=== PATIENT | female | born 1960 | race Caucasian/White ===

== ENCOUNTER 2019-04-16 15:33 | Outpatient (CLI) | payer OTHER, SELFPAY ==
--- NOTE | 2019-04-16 15:36 | ECG_ITS ---
Measurements Intervals [place] Rate: 53 P: 69 VA: 158 QRS: 15 QRSD: 102 T: 40 QT: 445 QTc: 419 Interpretive Statements SINUS BRADYCARDIA DELAYED PRECORDIAL R/S TRANSITION BASELINE ARTIFACT- I, II, III, AVR, AVL, AVF, V6 BORDERLINE ECG Electronically Signed On 04-16-2019 16:06:23 TALENT PARTNER by Rigoberto Farias D.O.
== END 2019-04-16 15:34 | disposition home or self-care (01) ==
LOC: ANHSURGERY 15:36
PROVIDERS: PCP Internal Medicine; Visit Provider Surgery
DX: I49.3 Ventricular premature depolarization (principal)
CPT/HCPCS: 93005

== ENCOUNTER 2019-04-23 01:52 | Day surgery (SDC) | payer OTHER, SELFPAY ==
[2019-04-09 12:39] VITALS: BMI 22.8
[2019-04-23 13:26] VITALS: BP 102/67; PULSE 56; RESP 14; TEMP 36.2; O2SAT 98
--- NOTE | 2019-04-23 13:45 | WPDANESEPPF ---
Anes - Initial Pre Proc Eval Procedure: Operation Date: 04/23/19 14:30 Proposed Procedures p Excision Subcutaneous Mass Right Mid Back - Red Hernandez MD Date/Time: 04/23/19 13:45 Surgeon: Red Hernandez MD Pre Op Diagnosis: Mass of Trunk Patient Data Age: 59 Gender: F Height: 5 ft 2 in Weight: 56.8 kg Last Vital Signs Temp 97.1 F L 04/23/19 13:26 Pulse 56 L 04/23/19 13:26 Resp 14 04/23/19 13:26 BP 102/67 04/23/19 13:26 Pulse Ox 98 04/23/19 13:26 Allergies Allergy/AdvReac Type Severity Reaction Status Date / Time adhesive Allergy Mild REDNESS Verified 04/23/19 13:15 penicillin G Allergy Unknown Hives Verified 04/23/19 13:15 Penicillins Allergy Unknown Hives Verified 04/23/19 13:15 Sulfa (Sulfonamide Allergy Unknown Hives Verified 04/23/19 13:15 Antibiotics) midazolam AdvReac Severe VERY HARD Verified 04/23/19 13:15 TO WAKE UP Home Medications Medication Instructions Recorded Confirmed Type estradiol 0.5 mg tablet 0.5 mg PO DAILY 01/25/19 04/23/19 History fyqeefzhgrff-Av-tneg-minerals 1 tablet PO DAILY 01/25/19 04/23/19 History omega-3 fatty acids 1,000 mg 1,000 mg PO DAILY 01/25/19 04/23/19 History capsule Patient hx anesthesia problems: none Family hx anesthesia problems: none PMFSH Past Medical History Medical History (Updated 04/23/19 @ 13:45 by Partha Franks MD) Irregular heart beat Surgical History Surgical History H/O breast biopsy x7 H/O section x2 H/O sinus surgery H/O: hysterectomy x2 Hx of appendectomy Hx of tonsillectomy Social History Social History Smoking status: Never smoker Alcohol intake: current Anes - Eval Final PreProcedure Day of Procedure 04/23/19 13:45 Patient weight: normal Heart: regular rate and rhythm Lungs: clear to auscultation Airway: Mallampati scale class II Neurological: alert and oriented Last oral intake: >/= 8 hours ASA classification: II Emergent: no Anesthetic plan: proceed Anesthesia type and monitoring: general GIVS (avoid Versed; patient does not want, states impair memory for prolonged period of time) and standard monitoring Informed Consent: The patient's anesthetic plan and its attendant risks and benefits were discussed with the patient/family/POA. Questions were solicited and answers provided to the satisfaction of the patient/family/POA.
[2019-04-23] MEDS: LACTATED RINGERS 1,000 ML 30 ML IV CONT (13:59)
--- NOTE | 2019-04-23 14:52 | PM.HPGS ---
History of Present Illness History of Present Illness Consent: Risks, benefits, and alternatives of excision of a subcutaneous mass right upper back have been discussed and questions answered. Patient agrees to proceed with procedure. Chief complaint: Mass of Trunk Narrative: Lizet Vogel is a 59 year old female who presented to the office at the request of CHELY Cabrera for evaluation of a right mid back mass. Patient noticed a mass on her back at least 3 years ago, just under her bra strap. Clothes rub on this upon which she then is experiencing occasional itching and tingling. She has a regular work-our regimen in which the clothing and undergarments she wears also cause discomfort by rubbing on it. She does have hx of excision of a benign lipoma on her left breast in the distant past. Her mother also had multiple lipomas removed. Review of Systems Constitutional: Constitutional: Reports no additional constitutional complaints and Denies frequent falls Eyes: Eyes: Reports as per HPI ENT: Reports Normal hearing present, Denies dizziness and Reports other (Mucous membranes moist.) Cardiovascular: Cardiovascular: Denies chest pain, Denies palpitations, Denies dyspnea and Denies dyspnea on exertion Respiratory: Respiratory: Denies hemoptysis, Denies dyspnea, Denies dyspnea on exertion and Denies wheezing Gastrointestinal: Gastrointestinal: Reports no additional gastrointestinal complaints Genitourinary: Genitourinary: Denies hematuria, Denies urinary frequency and Denies nocturia Musculoskeletal: Musculoskeletal: Denies deformity and Reports other ( no clubbing,cyanosis, or edema) Integumentary/Breasts: Skin/Breast: Denies new lesions, Denies rash and Denies unusual bruising Neurologic: Reports Normal hearing present, Denies dizziness, Denies frequent falls, Denies memory loss and Denies seizure-like activity Psychiatric: Psychiatric: Denies memory loss and Reports other ( normal mood and mental status) Endocrine: Endocrine: Denies cold intolerance and Denies palpitations Hematologic/Lymphatic: Hematologic/Lymphatic: Denies easy bleeding and Denies easy bruising Allergic/Immunologic: Allergic/Immunologic: Denies wheezing and Reports other ( no lymphadenopathy) [facility] Past Medical History Medical History (Updated 04/23/19 @ 14:56 by Red Hernandez MD) Irregular heart beat Surgical History Surgical History H/O breast biopsy x7 H/O section x2 H/O sinus surgery H/O: hysterectomy x2 Hx of appendectomy Hx of tonsillectomy Social History Social History Smoking status: Never smoker Alcohol intake: current Meds Home Medications and Allergies Home Medications Medication Instructions Recorded Confirmed Type estradiol 0.5 mg tablet 0.5 mg PO DAILY 01/25/19 04/23/19 History pfhiunlnyulj-Km-iekd-minerals 1 tablet PO DAILY 01/25/19 04/23/19 History omega-3 fatty acids 1,000 mg 1,000 mg PO DAILY 01/25/19 04/23/19 History capsule Allergies Allergy/AdvReac Type Severity Reaction Status Date / Time adhesive Allergy Mild REDNESS Verified 04/23/19 13:15 penicillin G Allergy Unknown Hives Verified 04/23/19 13:15 Penicillins Allergy Unknown Hives Verified 04/23/19 13:15 Sulfa (Sulfonamide Allergy Unknown Hives Verified 04/23/19 13:15 Antibiotics) midazolam AdvReac Severe VERY HARD Verified 04/23/19 13:15 TO WAKE UP Vital Signs Vital Signs - 24 hr 04/23/19 13:26 Temperature 36.2 C L Pulse Rate 56 L Respiratory Rate 14 Blood Pressure 102/67 Pulse Oximetry 98 Exam Const: General: cooperative, healthy appearing, no acute distress, well developed and alert; No confusion Nutritional Appearance: well nourished Orientation/consciousness: patient oriented x3 and No confusion Limitations: no limitations HENMT: Head: normal to inspection, normocephalic
[2019-04-23] MEDS: LIDO 2%/EPINEPHRINE 1:100,000 20 ML VIAL INFILTRATE (15:32)
[2019-04-23 16:03] VITALS: BP 99/49; PULSE 80; RESP 16; O2SAT 100
[2019-04-23 16:40] VITALS: BP 113/52; PULSE 82; RESP 16; O2SAT 100
--- NOTE | 2019-04-23 16:40 | P.OP_ITS ---
Procedure Note - Detailed Date of procedure: 04/23/19 Pre-op diagnosis: Mass of Trunk 5 x 4 cm subcutaneous mass right upper back ( suspected lipoma ) Post-op diagnosis: same Procedure performed: Excision of 5 x 4 cm subcutaneous mass right upper back Description of procedure: The patient was placed in the left lateral decubitus position. Anesthesia induced general IV sedation. After a surgical time out confirming patient and procedure the patient was prepped and draped in the usual sterile fashion. Local anesthetic was administered subcutaneously. The lesion measured externally 5 x 4.5 cm. An vertical direct incision was made over the palpable the lesion and I dissected directly down through the subcutaneous tissues until we saw what appeared to be the capsule around the suspected lipoma. I dissected down And around the palpable movable spongy mass into the deep subcutaneous tissues and then completely excised the lesion. this section was done mostly with needle- tip Bovie cautery. The deep surface of this mass was densely adhered to the underlying muscular fascia. It nicely and appeared that I had excised the entire capsule of the lipoma. Bleeding was controlled with electrocautery. The wound was closed in two layers. An un-dyed 2-0 vicryl deep dermal and then a 4-0 undyed Moncryl running subcuticular closure was completed. Surgical glue applied as dressing. Patient tolerated this well. Anesthesia: local and other ( G IV S by Dr. Shady Franks) Surgeon: Red Hernandez MD Cut And Print Machine Operator: TED Moy, OR 1st assist Estimated blood loss (mL): 3 Drains: No Packing: No Pathology: yes ( 5 x 3.5 cm mass (suspected lipoma )) Complications: No immediate complications Condition: stable Disposition: same day Findings: a spongy soft mass consistent with lipoma. This was densely adhered to the underlying fascia however.
== END 2019-04-23 16:56 | disposition home or self-care (01) ==
PROVIDERS: PCP Internal Medicine; Visit Provider Surgery
PROC: (CPT 21931; principal; 2019-04-23 14:30)
DX: D17.1 Benign lipomatous neoplasm of skin and subcutaneous tissue of trunk (principal)
CPT/HCPCS: 21931; 88304; J2704; J3010; J7120

== ENCOUNTER 2020-01-02 07:29 | Outpatient (CLI) | payer OTHER, SELFPAY ==
--- NOTE | ~2020-01-02 | MM_ITS ---
EXAMINATION: MM scrn cally implant BI w uriel HISTORY: Screening mammogram TECHNIQUE: Craniocaudal and mediolateral oblique 3-D tomosynthesis images with implant displacement a nd synthetic 2-D images were generated. Craniocaudal and mediolateral oblique views of the breasts wi thout implant displacement were obtained using full field digital mammography. CAD analysis was submi tted and interpreted. COMPARISON: Comparison to multiple prior studies sequentially, with oldest reviewed study dated 08/31. BREAST PARENCHYMAL COMPOSITION: The breasts are heterogeneously dense, which may obscure small masses . FINDINGS: There are bilateral subpectoral saline implants. There are postbiopsy changes in the left b reast. There is no evidence of suspicious mass, calcification, or architectural distortion to suggest malignancy in either breast. There has been no suspicious interval change. IMPRESSION: 1. No mammographic evidence of malignancy. 2. Recommend routine screening mammography in one year. BI-RADS Category 2: Benign finding(s). Reviewed, dictated and finalized at location A.
== END 2020-01-02 07:30 | disposition home or self-care (01) ==
LOC: ANHIMG 07:31
PROVIDERS: PCP Internal Medicine; Visit Provider Nurse Practitioner
DX: Z12.31 Encounter for screening mammogram for malignant neoplasm of breast (principal)
CPT/HCPCS: 77063; 77067

== ENCOUNTER 2021-01-06 17:17 | Outpatient (CLI) | payer OTHER, SELFPAY ==
--- NOTE | ~2021-01-06 | MM_ITS ---
EXAMINATION: MM scrn cally implant BI w uriel HISTORY: Screening mammogram TECHNIQUE: Craniocaudal and mediolateral oblique 3-D tomosynthesis images with implant displacement a nd synthetic 2-D images were generated. Craniocaudal and mediolateral oblique views of the breasts wi thout implant displacement were obtained using full field digital mammography. CAD analysis was submi tted and interpreted. COMPARISON: 01/02/2020, 11/29/2018, 12/03/2017 bilateral digital screening mammogram examinations BREAST PARENCHYMAL COMPOSITION: The breasts are heterogeneously dense, which may obscure small masses . FINDINGS: Status post bilateral augmentation mammoplasty. There are multiple biopsy markers of surgical clips of left breast. History of prior bilateral benign breast biopsies. Scattered bilateral punctate benign-appearing microcalcifications. There is no evidence of suspicious mass, calcification, or architectural distortion to suggest malign steffen in either breast. There has been no suspicious interval change. IMPRESSION: 1. No mammographic evidence of malignancy. 2. Recommend routine screening mammography in one year. BI-RADS Category 2: Benign finding(s). Reviewed, dictated and finalized at location A.
== END 2021-01-06 17:18 | disposition home or self-care (01) ==
LOC: ANHIMG 17:18
PROVIDERS: PCP Internal Medicine; Visit Provider Nurse Practitioner
DX: Z12.31 Encounter for screening mammogram for malignant neoplasm of breast (principal)
CPT/HCPCS: 77063; 77067

== ENCOUNTER → 2021-03-02 03:03 | Outpatient (CLI) | payer OTHER, SELFPAY ==
[2021-03-02 18:29] LABS: SARS-CoV-2 RNA PCR Negative
== END ==
PROVIDERS: PCP Internal Medicine; Visit Provider Obstetrics & Gynecology Gynecology
DX: Z20.822 Contact with and (suspected) exposure to COVID-19 (principal)
CPT/HCPCS: C9803; U0003; U0005

== ENCOUNTER 2021-08-03 07:36 | Outpatient (CLI) | payer OTHER, SELFPAY ==
--- NOTE | ~2021-08-03 | DEXA_ITS ---
Bone Density Report Name: PELON OVERTON Age: 61 Sex: Female Ethnicity: White Date of : 1960 Indication: postmenopausal; screening for osteoporosis; hysterectomy; Referring Provider: AMY, HANK Study: Bone densitometry was performed. Exam Date: August 03, 2021 Accession number: [id number] Bone Density: Region BMD T-score Z-score Classification AP Spine(L1-L4) 1.006 -0.4 1.1 Normal Femoral Neck (Left) 0.701 -1.3 0.0 Osteopenia Total Hip (Left) 0.920 -0.2 0.8 Normal Femoral Neck (Right) 0.714 -1.2 0.1 Osteopenia Total Hip (Right) 0.923 -0.2 0.8 Normal Total Hip Mean 0.921 -0.2 0.8 Normal World Health Organization criteria for BMD impression classify patients as: Normal (T-score at or above -1.0), Osteopenia (T-score between -1.0 and -2.5), or Osteoporosis (T-score at or below -2.5). 10-year Fracture Risk(1): Major Osteoporotic Fracture 7.0% Hip Fracture 0.6% Reported Risk Factors: [place] (), Neck BMD=0.701, BMI=21.2 (1) FRAX(R) Version 3.08. Fracture probability calculated for an untreated patient. Fracture probability may be lower if the patient has received treatment. Previous Exams: Region Exam Age BMD T-score BMD Change BMD Change Date g/cm2 vs Baseline vs Previous AP Spine (L1-L4) 08/03/2021 61 1.006 -0.4 -0.117 (-10.4% 0.012 (1.2%) 09/18/2016 56 0.994 -0.5 -0.129 (-11.5% -0.129 (-11.5% 11/07/2011 51 1.123 0.7 Total Hip(Left) 08/03/2021 61 0.920 -0.2 -0.040 (-4.2%) -0.070 (-7.1%) 09/18/2016 56 0.990 0.4 0.030 (3.1%)# 0.030 (3.1%)# 11/07/2011 51 0.960 0.1 Total Hip(Right) 08/03/2021 61 0.923 -0.2 -0.039 (-4.0%) -0.091 (-9.0%) 09/18/2016 56 1.014 0.6 0.052 (5.5%)# 0.052 (5.5%)# 11/07/2011 51 0.962 0.2 *Denotes significance at 95% confidence level, LSC for AP Spine = 0.022 g/cm2, LSC for Total Hip = 0.027 g/cm2 # Denotes dissimilar scan types or analysis methods Clinical Information Provided by Patient: Has the following medical conditions: Hysterectomy Patient maximum height was 63 Menopause Age: 37 Drinks caffeinated beverages Onset of menses at age 12 Number of children 2 Impression: The patient has low bone mass, based on the Left Femoral Neck T-score. The patient has an estimated ten-year risk of hip fracture of 0.6% and an estimated ten-year risk of major fracture of 7%, based on the WHO FRAX algorithm. The BMD
== END 2021-08-03 07:37 | disposition home or self-care (01) ==
PROVIDERS: PCP Internal Medicine; Visit Provider Nurse Practitioner
DX: Z78.0 Asymptomatic menopausal state (principal); M85.851 Other specified disorders of bone density and structure, right thigh; M85.852 Other specified disorders of bone density and structure, left thigh
CPT/HCPCS: 77080

== ENCOUNTER 2021-11-04 12:03 | Outpatient (CLI) | payer OTHER, SELFPAY ==
--- NOTE | ~2021-11-04 | MMUS_ITS ---
EXAMINATION: MM diag cally implant BI w uriel, US breast LT complete HISTORY: Left breast lump TECHNIQUE: Implant displaced ML, MLO and CC 3-D tomosynthesis images of both breasts were performed a nd synthetic 2-D images were generated. Bilateral implant ML, MLO and CC views. CAD analysis was subm itted and interpreted. High resolution complete left breast ultrasound including all 4 quadrants and subareolar area was performed. COMPARISON: 01/06/2021 bilateral implant screening mammogram 01/02/2020, 11/29/2018 bilateral implant screening mammogram examinations BREAST PARENCHYMAL COMPOSITION: The breasts are heterogeneously dense, which may obscure small masses . FINDINGS: MAMMOGRAPHIC FINDINGS: Status post bilateral augmentation mammoplasty. Status post left partial mastectomy. There are 2 biopsy markers on the left. Scattered bilateral benign appearing calcifications. No interval suspicious mass or architectural di stortion or significant new or developing density of either breast is detected compared to prior exam inations dating back to 11/29/2018. ULTRASOUND: Left breast implant is noted. No suspicious mass or shadowing is noted at 12:00 the area of clinical concern of lump. 4:00 near nipple: 3.9 x 3.1 x 4.3 mm cyst with through transmission and posterior enhancement 6:00 2 cm from nipple: 4.8 x 3.7 x 4.6 mm circumscribed hypoechoic lesion without internal vascularit y or posterior shadowing. IMPRESSION: 1. Probable benign findings 2. 6 month diagnostic mammogram and left breast ultrasound follow-up are recommended BI-RADS category 3, probably benign findings. Reviewed, dictated and finalized at location A. IMPRESSION: 1. Probable benign findings 2. 6 month diagnostic mammogram and left breast ultrasound follow-up are recomm ended BI-RADS category 3, probably benign findings.
== END 2021-11-04 12:04 | disposition home or self-care (01) ==
PROVIDERS: PCP Internal Medicine; Visit Provider Nurse Practitioner
DX: N63.20 Unspecified lump in the left breast, unspecified quadrant (principal); R92.8 Other abnormal and inconclusive findings on diagnostic imaging of breast
CPT/HCPCS: 76641; 77062; 77066; G0279

== ENCOUNTER 2022-04-24 08:57 | Outpatient (CLI) | payer OTHER, SELFPAY ==
--- NOTE | 2022-04-24 | ECG_ITS ---
Measurements Intervals [place] Rate: 60 P: 75 AL: 169 QRS: 23 QRSD: 96 T: 50 QT: 430 QTc: 430 Interpretive Statements SINUS RHYTHM BORDERLINE ECG LOW-VOLTAGE QRS IN LIMB LEADS COMPARED TO ECG 04/16/2019 16:02:17 HEART RATE HAS INCREASED Electronically Signed On 04-24-2022 16:19:39 DROP WIRE HANGER by Gold Galloway M.D.
--- NOTE | ~2022-04-24 | XR_ITS ---
EXAMINATION: XR lg joint inject/asp w image DATE: 04/24/2022 10:05 INDICATION: Right hip pain. TECHNIQUE: A time-out was performed to verify the patient's name, date of , and procedure to b e performed. The procedure including the risks, benefits, and alternatives was discussed with the pat ient. Risks discussed included bleeding and infection. The patient understood the risks and agreed to proceed. The skin overlying the right hip joint was prepped and draped in usual sterile fashion. A nesthetic was administered with 1% lidocaine subcutaneously. A 22 G needle was advanced under fluoro scopic guidance into the joint. Subsequently, injectate consisting of 4 mL 1% lidocaine and 1 mL 80 mg/mL Depo-Medrol was instilled. The needle was removed and the entry site was cleaned and dressed. There were no immediate complications. Fluoroscopy exposure time was 0.1 minutes. The total number o f images was 1. FINDINGS: Real-time fluoroscopy demonstrates the needle in the right hip joint. Patient's pain prior to procedure:2/10. Patient's pain following the procedure: 0/10. IMPRESSION: 1. Fluoroscopy guided right hip joint injection of local anesthetic and steroid with decrease in the patient's presenting pain. Reviewed, dictated and finalized at location A. GER OF PHOTOGRAPHY
--- NOTE | ~2022-04-24 | XR_ITS ---
Clinical Indication: Preoperative evaluation, chest pain PA and lateral views of the chest: Comparison: None Findings: The lungs are clear, without evidence of focal consolidation or pleural effusion. Cardiome diastinal silhouette is within normal limits. Bones and soft tissues are unremarkable. Impression: Normal chest. Reviewed, dictated and finalized at [facility]. F PROCUREMENT OFFICER Impression: Normal chest.
[2022-04-24 11:15] LABS: Basophils Percent Auto 0.5 % (0.2-1.2); Eosinophils Absolute Auto 0.1 K/mm3 (0-0.3); Eosinophils Percent Auto 1.8 % (0-4.4); Hemoglobin 13.6 g/dL (12.0-15.0); Immature Granulocyte Absolute 0.01 K/mm3 (0.00-0.031); Immature Granulocyte Percent A 0.3 % (0-0.5); Lymphocytes Absolute Auto 1.12 K/mm3 (0.9-3.2); Lymphocytes Percent Auto 28.5 % (18.3-44.2); Mean Corpuscular HGB Conc 33.2 g/dl (32-36); Mean Corpuscular Hemoglobin 30.6 pg (26-34); Mean Corpuscular Volume 92.3 fl (80-100); Mean Platelet Volume 9.2 fl (7.4-10.4); Monocytes Absolute Auto 0.4 K/mm3 (0.1-0.6); Monocytes Percent Auto 10.4 % (2.6-8.5); Neutrophils Absolute Auto 2.3 K/mm3 (1.3-6.7); Neutrophils Percent Auto 58.5 % (45.5-73.1); Platelet Count Result 204 k/mm3 (150-375); Red Blood Count 4.44 M/mm3 (4.2-5.4); Red Cell Distribution Width 12.2 % (11.5-14.5); White Blood Count 3.9 K/mm3 (4.5-10.0)
[2022-04-24 11:24] LABS: Alanine Aminotransferase 27 U/L (6-35); Albumin Level 4.3 g/dL (3.5-5.1); Alkaline Phosphatase 57 U/L (38-126); Anion Gap 3 mmol/L (8-16); Aspartate Amino Transferase 35 U/L (14-36); Bilirubin,Total 0.7 mg/dL (0.2-1.3); Blood Urea Nitrogen 14 mg/dL (7-17); Calcium 9.3 mg/dL (8.4-10.2); Carbon Dioxide 31 mmol/L (22-30); Chloride 101 mmol/L (98-107); Estimated Glomerular Filt Rate > 60; Glucose 76 mg/dL (65-110); Potassium 3.6 mmol/L (3.4-5.0); Sodium 135 mmol/L (137-145)
[2022-04-24 11:40] LABS: Partial Thromboplastin Time 28.8 SECONDS (22.3-36.8); Prothrombin Time 12.9 Seconds (11.1-14.7)
== END 2022-04-24 08:58 | disposition home or self-care (01) ==
PROVIDERS: PCP Internal Medicine; Visit Provider Orthopaedic Surgery
DX: Z01.818 Encounter for other preprocedural examination (principal); M25.551 Pain in right hip
CPT/HCPCS: 20610; 36415; 71046; 77002; 80053; 85025; 85610; 85730; 93005; J1040

== ENCOUNTER 2022-07-12 11:50 | Outpatient (CLI) | payer OTHER, SELFPAY ==
--- NOTE | ~2022-07-12 | MMUS_ITS ---
EXAMINATION: MM diag cally implant LT w uriel, US breast LT complete HISTORY: Six-month follow-up of probable benign mammographic and ultrasound findings TECHNIQUE: Implant displaced ML, MLO and CC 3-D tomosynthesis images of the breast were performed and synthetic 2-D images were generated. Implant ML, MLO and CC views. CAD analysis was submitted and in terpreted. Complete ultrasound examination of left breast including all 4 quadrants and subareolar areas. COMPARISON: 2diagnostic bilateral implant incomplete left breast ultrasound examination BREAST PARENCHYMAL COMPOSITION: The breasts are heterogeneously dense, which may obscure small masses . LEFT MAMMOGRAM FINDINGS: 2 biopsy markers and multiple surgical clips are again noted on the left. No interval suspicious mass, architectural distortion, malignant calcification, skin thickening or retr action or significant new or developing density is detected. LEFT ULTRASOUND FINDINGS: No suspicious mass or shadowing of the left breast is detected. Heterogeneously dense stroma is noted. Scattered cysts and complicated cystic lesions are noted, incl uding but not limited to approximately 3.4 x 6 mm cyst at 4:00 near nipple, benign appearing circumsc ribed complex lesion with through transmission posterior enhancement at 6:00 2 cm from the nipple, me asuring approximately 5.6 x 8 mm. IMPRESSION: 1. Benign findings 2. Routine annual mammographic screening is recommended BI-RADS Category 2: Benign finding(s). And ultrasound Reviewed, dictated and finalized at location A. IMPRESSION: 1. Benign findings 2. Routine annual mammographic screening is recommended BI-RADS Category 2: Benign finding(s). And ultrasound
== END 2022-07-12 11:51 | disposition home or self-care (01) ==
LOC: ANHIMG 11:51
PROVIDERS: PCP Internal Medicine; Visit Provider Obstetrics & Gynecology Gynecology
DX: N60.02 Solitary cyst of left breast (principal)
CPT/HCPCS: 76641; 77061; 77065; G0279

== ENCOUNTER 2023-07-18 08:03 | Outpatient (CLI) | payer OTHER, SELFPAY ==
--- NOTE | ~2023-07-18 | MM_ITS ---
EXAMINATION: MM scrn cally implant BI w uriel HISTORY: Screening mammogram TECHNIQUE: Craniocaudal and mediolateral oblique 3-D tomosynthesis images with implant displacement a nd synthetic 2-D images were generated. Craniocaudal and mediolateral oblique views of the breasts wi thout implant displacement were obtained using full field digital mammography. CAD analysis was submi tted and interpreted. COMPARISON: Comparison to multiple prior studies sequentially, with oldest reviewed study dated 11/29. BREAST PARENCHYMAL COMPOSITION: Dense: The breasts are heterogeneously dense, which may obscure small masses FINDINGS: There are bilateral subpectoral saline implants. There is no evidence of suspicious mass, c alcification, or architectural distortion to suggest malignancy in either breast. There has been no s uspicious interval change. IMPRESSION: 1. No mammographic evidence of malignancy. 2. Recommend routine screening mammography in one year. BI-RADS Category 1: Negative Reviewed, dictated and finalized at location B.
== END 2023-07-18 08:04 | disposition home or self-care (01) ==
LOC: ANHIMG 08:05
PROVIDERS: PCP Internal Medicine; Visit Provider Advanced Practice Midwife
DX: Z12.31 Encounter for screening mammogram for malignant neoplasm of breast (principal)
CPT/HCPCS: 77063; 77067

== ENCOUNTER 2024-08-21 07:36 | Outpatient (CLI) | payer OTHER, SELFPAY ==
--- NOTE | ~2024-08-21 | MM_ITS ---
Examination: MM scrn KULDIP implant BI W uriel INDICATION: Asymptomatic, referred for screening mammogram COMPARISON: 07/18/2023 through 11/29/2018 TECHNIQUE: Digital Breast Tomosynthesis CC, MLO, and implant displaced CC and MLO views of Both breas ts were obtained with computer-aided detection to assist in interpretation of the study. FINDINGS: The breasts are heterogeneously dense, which may obscure small masses. Bilateral breast retropectoral saline implants in place appears intact. No focal dominant mass, architectural distortion, or suspicious microcalcifications are identified. B iopsy clip in the left breast. There are no features to suggest malignancy. IMPRESSION: 1. No evidence of malignancy in the breasts. 2. Both breasts retropectoral saline implants appears intact. Recommend continued screening mammography BI-RADS 2, BENIGN Reviewed, dictated and finalized at location B.
--- OUTSIDE RECORDS SUMMARY | 2024-08-21 07:40 | XMS_ITS | Referral Summary ---
Author Organization [facility] Address [address] [place] [address] Phone Care Team Providers Care Car Starter Name Role Phone Lukas King MD Primary Care Provider [phone] Allergies Active Allergy Reactions Criticality Noted Date Comments Penicillins [place] Hives,Itching,Vomiting Medium 05/17/2017 Sulfa (Sulfonamide Antibiotics) Medications multivitamin tablet tablet take 1 tablet by oral route every day with food 0 0 11/08/2015 Active estradioL (ESTRACE) 0.5 mg tablet Take 1 tablet (0.5 mg total) by mouth daily 10/22/2022 Active Active Problems Problem Noted Date Diagnosed Date Fibrocystic change of breast, left 11/30/2017 Intraductal papilloma of left breast 11/30/2017 Radial scar of breast 11/30/2017 Abnormal ultrasound of breast 11/14/2017 Insomnia 11/08/2015 Overview (06/22/2016): Insomnia, unspecified type Pounding heartbeat 11/08/2015 Overview (06/22/2016): Pounding heartbeat Ventricular premature beats 11/08/2015 Overview (06/22/2016): PVC's (premature ventricular contractions) Immunizations Immunization Administration Dates Next Due Influenza, Quadrivalent, Ambar l Culture-based MDCK, Preservative Free, Antibiotic Free, Intramuscular 01/25/2022,12/21/2019 Influenza, Quadrivalent, Split, Intramuscular Influenza, Trivalent, IM (MDV) 12/31/2016 Influenza, Trivalent, Preservative Free, Intramu scular 01/14/2016,12/31/2014 Tdap 01/04/2017 Social History Tobacco Use Types Packs/Day Years Used Date Smoking Tobacco: Never Tobacco Cessation:Counseling Given: Not Answered Alcohol Use Standard Drinks/Week Comments Yes 0 (1 standard drink = 0.6 oz pur e alcohol) Comments Unknown Sex and Gender Information Value Date Recorded Sex Assigned at Not on file Legal Sex Female Gender Identity Not on file Sexual Orientation Not on file Last Filed Vital Signs Vital Sign Reading Time Taken Comments Blood Pressure 100/60 11/08/2015 8:07 AM CDT Pulse 60 11/08/2015 8:07 AM CDT Temperature - - Respiratory Rate - - Oxygen Saturation - - Inhaled Oxygen Concentration - - Weight 54.4 kg (120 lb) 01/29/2023 7:10 AM 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
--- OUTSIDE RECORDS SUMMARY | 2024-08-21 07:40 | XMS_ITS | Clinical Summary ---
Author Organization [facility] Address [address] [place] [address] Care Team Providers Care Manager Endoscopy Name Role Phone Blu Colby DO Primary Care Provider [phone] Allergies Active Allergy Reactions Criticality Noted Date Comments Penicillins Hives High 11/14/2017 Sulfa (Sulfonamide Antibiotics) Hives High 10/18 Medications estradiol 0.025 mg/24 hr patch Apply 1 Patch to skin as directed twice weekly. 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/30/2017 Intraductal papilloma of left breast 11/30/2017 Fibrocystic change of breast, left 11/30/2017 Abnormal ultrasound of breast 11/14/2017 Hormone replacement therapy 11/14/2017 Family History Medical History Relation Name Comments Cancer Father bladder, a t 79 Cancer Maternal Aunt bladder and ric ng, at 80 Cancer Maternal Grandfather bladder and lung, at 80 Breast Cancer Maternal Grandmother a t 80 Relation Name Status Comments Father Maternal Aunt Maternal Grandfather Maternal Grandmother Social History Tobacco Use Types Packs/Day Years Used Date Smoking Tobacco: Never Smokeless Tobacco: Never Alcohol Use Standard Drinks/Week Comments Yes 1 (1 standard drink = 0.6 oz pur e alcohol) Comments No Sex and Gender Information Value Date Recorded Sex Assigned at Not on file Legal Sex Female 9:27 AM CDT Gender Identity Not on file Sexual Orientation Not on file Last Filed Vital Signs Vital Sign Reading Time Taken Comments Blood Pressure 124/78 01/02/2018 8:50 AM CDT Pulse 85 01/02/2018 8:50 AM CDT Temperature 36.4 C (97.6 F) 01/02/2018 8:50 AM CDT Respiratory Rate - - Oxygen Saturation 96% 01/02/2018 8:50 AM CDT Inhaled Oxygen Concentration - - Weight 56.4 kg (124 lb 6.4 oz) 01/02/2018 8:50 A M CDT Height 157.5 cm (5' 2) 01/02/2018 8:50 AM CDT Body Mass Index 22.75 01/02/2018 8:50 AM CDT Plan of Treatment Health Maintenance Due Date Last Done Comments HPV/Cotest (21-29) 1982 CERVICAL CANCER SCREENING 1991 HPV/Cotest (30-65) 1991 PAP SMEAR 1991 BREAST CANCER SCREENING 2001 COLORECTAL SCREENING 2006 Colorectal Cancer Screening 2006 FIT-DNA Q 3 years 2006 FIT/FOBT Q 1 year 2006 Flex Sig/CT Colonography Q 5 years 2006 ZOSTER VACCINE (1 of 2) 2011 INFLUENZA VACCINE (#1) 2023 DTAP/TDAP/TD VACCINES (2 - Td or Tdap) 01/04/2027 RSV VACCINE (60+ or ) (1 - 1-dose 75+ series) 02/21/2036 Care Teams Manager Endoscopy Relationship Specialty Start Date End Date Blu Colby DO [address] [facility] [address] [place] [id number] PCP - General Internal Medicine 11/14/17
--- OUTSIDE RECORDS SUMMARY | 2024-08-21 07:40 | XMS_ITS | Clinical Summary ---
Author Organization [facility] Address [address] [place] [address] Phone Care Team Providers Care Lathe Operator Name Role Phone Lukas King MD Primary Care Provider [phone] Allergies Active Allergy Reactions Criticality Noted Date [...] Preservative Free, Intramu scular 01/14/2016,12/31/2014 Tdap 01/04/2017 Surgical History Surgery Date Site/Laterality Comments OTHER SURGICAL HISTORY Breast Biopsy x2 HYSTERECTOMY Hysterectomy OTHER SURGICAL HISTORY Removal of ovaries & tubes SINUS SURGERY Sinus Surgery Medical History Medical History Date Comments Hx Other Medical Bronchitis shelby ral times. Hx Other Medical Arrhythmias PVC 's symptomatic Family History Medical History Relation Name Comments Bladder Cancer Father 2 Bladder Cance r; Other Mother 2 hypercholestero l; Relation Name Status Comments Father 1 Alive Father 2 Mother 1 Alive Mother 2 Social History Tobacco Use Types Packs/Day Years Used Date Smoking Tobacco: Never Tobacco Cessation:Counseling Given: Not Answered Alcohol Use Standard Drinks/Week Comments Yes 0 (1 standard drink = 0.6 oz pur e alcohol) Comments Unknown Sex and Gender Information Value Date Recorded Sex Assigned at Not on file Legal Sex Female Gender Identity Not on file Sexual Orientation Not on file Obstetrics History Last Filed Vital Signs Vital Sign Reading Time Taken Comments Blood Pressure 100/60 11/08/2015 8:07 AM CDT Pulse 60 11/08/2015 8:07 AM CDT Temperature - - Respiratory Rate - - Oxygen Saturation - - Inhaled Oxygen Concentration - - Weight 54.4 kg (120 lb) 01/29/2023 7:10 AM SYSTEMS ENGINEERING MANAGER Height 160 cm (5' 3) 01/29/2023 7:10 AM SYSTEMS ENGINEERING MANAGER Body Mass Index 21.26 01/29/2023 7:10 AM SYSTEMS ENGINEERING MANAGER Plan of Treatment Health Maintenance Due Date Last Done Comments Breast Cancer Screening-Mammogram 1961 Colon Cancer Screening-Colonoscopy 1961 Depression Screening 1961 Hepatitis C Screening 1961 Hepatitis B Screening 1979 Regular Well Visit/Exam 18-64 1979 Zoster Vaccine (1 of 2) 2011 Covid-19 Vaccine (3 - season) 2023 07/09/2020, 06/18/2020 Influenza Vaccine (Season Ended) 2024 01/25/2022, 12/21/2019, 02/08/2019, Additional history exists DTaP/Tdap/Td Vaccine (2 - Td or Tdap) 01/04/2027 01/04/2017 Pneumococcal vaccine <65 Aged Out No longer eligible based on patient's age to complete this topic Insurance [facility] Address: [address] [place] [address] [facility] Address: [address] [address] [place] [phone] Care Teams Lathe Operator Relationship Specialty Start Date End Date Lukas King MD PCP - General Family Medicine 01/02/19
--- OUTSIDE RECORDS SUMMARY | 2024-08-21 07:40 | XMS_ITS | Clinical Summary ---
Author Organization [facility] Address [address] [place] [address] Care Team Providers Care Heel Builder Name Role Phone Blu Colby DO Primary Care Provider Source Comments [facility],non-owned Affiliates and Associated Physician Practices is amultiple site organization consisting of ambulatory clinics and hospital sitesin [place], [place], [place] and [place]. This disclosure is being madepursuant to the Care Everywhere program and may not contain all information available regarding this patient. 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 Gender Identity Not on file Sexual Orientation Not on file Plan of Treatment Health Maintenance Due Date Last Done Comments COLOGUARD (AGES 45-75) - COL ON CA SCREENING 1961 COLON MONITORING 1961 COLONOSCOPY - COLON CA SCREENING 1961 CT COLONOGRAPHY - COLON CA SCREENING 1961 Colorectal Cancer Screening 1961 FIT - COLON CA SCREENING 1961 FLEX SIG - COLON CA SCREENING 1961 LIPID TESTING 1961 MAMMOGRAM 1961 HIV SCREENING 02/21/1976 HEPATITIS C SCREENING 02/16/1979 PNEUMOCOCCAL VACCINE 50+ (1 of 1 - PCV) 2011 ZOSTER VACCINE (1 of 2) 2011 COVID-19 VACCINE (1 - 2023-2 5 season) 2023 DEPRESSION SCREENING 03/19/2024 INFLUENZA VACCINE (Season Ended) 2024 DTAP/TDAP/TD VACCINES (2 - T d or Tdap) 01/04/2027 01/04/2017 Respiratory Syncytial Virus (RSV) Vaccine Pt: or over 60 yrs (1 - 1-dose 75+ series) 02/21/2036 HEPATITIS B VACCINE Aged Out No longe r eligible based on patient's age to complete this topic HIB VACCINE Aged Out No longer eligi ble based on patient's age to complete this topic HPV VACCINE Aged Out No longer eligi ble based on patient's age to complete this topic MENINGOCOCCAL (Group B) VACC INE SHARED DECISION-MAKING Aged Out No longer eligibl e based on patient's age to complete this topic MENINGOCOCCAL GROUPS A/C/Y/W VACCINE Aged Out No longer eligible b ased on patient's age to complete this topic Insurance [id number] [place] [address] Care Teams Heel Builder Relationship Specialty Start Date End Date Blu Colby DO [address] [facility] [address] [place] [address] PCP - General Internal Medicine 01/04/17
--- OUTSIDE RECORDS SUMMARY | 2024-08-21 07:41 | XMS_ITS | Patient Health Record ---
Author Organization [facility] Address [address] [place] [address] Care Team Providers Care Supervisor Concrete Block Plant Name Role Phone Blu Colby Primary Care Provider Unavailab Bridger Bhardwaj Unavailable [phone] Cameron Lord Unavailable Unavailable ALLERGIES Allergen (clinical drug ingredient) Drug/Non Drug Allergy documented on EMR Reaction Allergy Type Onset Date Status Substance with sulfonamide structure and antibacterial mechanism of action (substance) Sulfa Antibiotics hives Drug Allergy Active Penicillin hives Drug Allergy Active REASON FOR REFERRAL No Information MEDICATIONS Medication SIG (Take, Route, Frequency, Duration) Notes Start Date End Date Status Tylenol Not-Taking Estradiol Active Aleve as needed Not-Taking traMADol HCl 50 MG 1 tablet as needed Orally every 4-6 hours for 7 days 03/02/2022 Not-Taking oxyCODONE-Acetaminophe n 7.5-325 MG 1 tablet as needed Orally every 4-6 hrs for 7 days 05/15/2022 Not-Taking PROBLEMS Problem Type ICD Code Onset Dates Problem Status W/U Status Risk SNOMED Code Notes Problem Degenerative spondylolisthesis (M43.10) Active confirmed Degenerative spondylolisthesis (2718759) Problem DDD (degenerative disc disease), lumbar (M51.36) Active confirmed Degenerative disc disease (69212276) Problem 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 confirmed Lumbosacral spondylosis without myelopathy (35658736) Problem Spondylolisthesis of lumbar region (M43.16) Active confirmed Acquired spondylolisthesis (143968242) Problem Orthopedic aftercare (Z47.89) Active confirmed Encounters Encounter Location Date Provider Diagnosis [facility] [address] [place] [address] 11/14/2023 Bridger Linder PLAN OF TREATMENT Pending Test Test Name Order Date CBC With Differential/Platelet PT AND PTT 03/02/2022 Chem-Comprehensive 03/02/2022 Insurance Providers Payer Name Payer Address Payer Phone Subscriber Number Group Number Insured Name Patient Relationship to Insured Coverage Start Date Coverage End Date [facility] [address] [address] [place] [address] [id number] Lizet Vogel Self - patient is the insured MEDICAL (GENERAL) HISTORY Medical History History ICD Code Anemia Osteopenia Head injury Neck pain Hip pain Constipation Depression Denies being hospitalized for psychiatri c condition Denies h/o drug/chemical dependency Surgical History Surgery Date(Month/Year) Appendectomy X 2 Sinus Breast biopsy X 7 bilateral Breast implants Hysterectomy X 2 LDL L4-5, TLIF L4-5 2022
--- OUTSIDE RECORDS SUMMARY | 2024-08-21 07:41 | XMS_ITS | Data Portability ---
Author Organization [employer], [facility] Address [address] [place] [phone] Assessment No assessment recorded. Plan of Treatment Reminders Order Date Submit Date Provider Last Modified By Organization Details Last Modified Time Details Appointments None recorded. Lab None recorded. Referral None recorded. Procedures None recorded. Surgeries None recorded. Imaging XR, hip, bilateral - rm 6 2024 025 [email or web address] Not available 09:41:20 Medication Orders None recorded. Patient TargetsNo targets recorded. Patient InstructionsNo instructions recorded. Reason for Referral None Reported. Results Created Date Observation Date Name Description Value Unit Range Abnormal Flag Note LastModifiedBy Organization Detail LastModifiedTime 04/04/1901/29/2023 MRI, hip, w/ contr ast No observ ation record ed. [email or web address] Not Available 16:06:14 Result Notes None recorded. Problems No Known Problems Procedures Surgical History Date Name Laterality Status Provider Name and Address Organization Details Recorded Time Radiographs completed Daniel Lucia [address], [place], [address], [employer] 04/06/2024 22:48:53 Imaging Results None recorded. Procedure Notes None recorded. Medical Equipment None Reported. Allergies No known drug allergies Medications Name Sig Start Date Stop Date Status Note LastModified by Organization Details LastModified Time nitrofurantoin macrocrystal 50 mg capsule TAKE 1 CAPSULE BY MOUTH POST-COI DALLY. active Not Available Not Available No t Available estradiol 0.5 mg tablet TAKE 1 TABLET BY MOUTH DAILY active Not Available Not Available No t Available Vitals Date Recorded Heart rate Body height Body mass index (BMI) Body weight Systolic blood pressure Diastolic blood pressure Provider Name and Address Organization Details Last Updated DateTime 5 66 /min 157.48 cm 21.9 kg/m2 47092.0 8 g 125 mm[Hg] 77 mm[Hg] Radha Frankner [facility], [facility] 11:37:59 Social History Question Answer Notes LastModified by Organizat ion Details LastModified Time Tobacco Smoking Status Never Smoker Radha [facility]cy [facility] 04/03/2024 11:57:48 What Is Your Relationship Status? Information not available 04/03/2024 Sex: Unknown Functional Status Question Answer Note LastModified by Organization D etails LastModified Time What is your level of alcohol consumption? Moderate Information not available 04/03/2024 Are you currently employed? 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 Moderate Information not available 04/03/2024 Mental Status None recorded. Family History Relationship Description Onset Age of this Age Resolved Age Notes LastModified by Organization Details LastModified Time Father No current problems or disability Not available 04/03 11:57:37 Mother No current problems or disability Not available 04/03 11:57:37 Medical History Condition Response HIV or AIDS N Coronary Artery Disease N Other Cancer N Gout N Kidney Stones N Hyperthyroidism N Breast Cancer Y Head Trauma/Injury N Hernia N Lung Cancer N Blood Clots N COPD N Depression N Lung Disease N Hypothyroidism N Pneumonia N Pacemaker N Parkinson's N Anxiety Disorder N Multiple Sprains N Arthritis N Alcohol / Substance Abuse N Kidney Cancer N Cancer N Melanoma N Stroke N Gabriel Danlos Syndrome (EDS) N Bowel Dysfunction N Leg or Foot Ulcers N Neck Injury N High Cholesterol N Skin Cancer N Liver Disease N Rheumatoid Arthritis N Fibromyalgia N Headaches N Gastric Issues N Concussion Y Kidney Disease N Heart Problems N Scoliosis N Chronic use of Pain Medication N Prostate Cancer N Migraines N Thyroid Problems N Alzheimers N DVT N Autoimmune Disorder N Anemia N Multiple Sclerosis N Tendon Tear N Ulcers N Heart Attack (LA) N Osteopenia N Diabetes N Bleeding Disorder N Seizures/Epilepsy N Cardiac Stent N Tuberculosis N A-FIB N BPH N Lymphoma N Urinary Tract Infection N Back Problems N Diverticulitis N Dementia N Asthma N Vision Problems N Lupus N Manager Express Medication Use N Peripheral Vascular Disease N Sleep Apnea N Sleep Disorder N GERD/Reflux N Hepatitis N Aneurysm N Thyroid Cancer N Heart Disease N Bronchitis N Pulmonary Embolism N Hypertension N Osteoporosis N Gynecological HistoryNo gynecological history recorded. Obstetrics History GPAL:G 0 P 0 0 0 0 Past Encounters Encounter ID Performer Location Encounter Start Date Encounter Closed Date Diagnosis/Indication Diagnosis SNOMED-CT Code Diagnosis ICD10 Code Diagnosis Note [id number] Daniel Lucia [facility] [address] [facility] [id number] 04/03/2024 11:19:54 04/03/2024 17:18:35 Pain of bilateral hip joints [id number] 2074238 M25.551 M25.552 We had a lengthy discussion regarding the findings of her x-rays and her underlying hip dysplasia. Certainly she does have degenerati ve type labral tears bilaterall y according to her MRI, but I believe it is her underlying dysplasia that offers a more substantia l issue. My recommenda tion at this time would be bilateral total hip arthroplas ty. We did discuss the role of Biologics and the difficult prognosis associated with her condition. She understand s and agrees to the plan she is going to follow-up with orthopedic surgery we will see her back with any further questions Health Concerns Section Related Observation LastModified by Organization Detai ls LastModified Time None Recorded Concern Status LastModified by Organization Details LastModified Time None Recorded Advance Directives Directive None Recorded Payers Encounter Date Sequence Insurance Name Policy Number Policy Paul Covered Member ID Paul Member ID Guarantor Name 04/03/2024 1 [facility] [id number] Lizet Vogel [id number] Lizet Vogel 04/03/2024 1 *SELF PAY* Hema Vogel Notes Date Note Type Note Provider Name and Address Organization Details Recorded Time 04/03/2024 text/html Patient is a 64-year-old female presents today chief complaint bilateral hip pain right greater than left she describes pain ongoing for the past 3-1/2 years in the right side 2-1/2 years on the left side. She states that her symptoms seem to begin after her dog pulled her and caused her a twisting accident. She was evaluated by an orthopedic surgeon who deferred her treatment in the hips until she had her back operated on. At the time she was having no back pain, but imaging of the hips did incidentally show a spondylolisthesis at L4 on L5. She underwent lumbar fusion to address her L4-5 spondylolisthesis, which provided no relief of her hip symptoms. Currently she describes a dull constant ache in the groin that radiates into the buttock she does have some pain that radiates into the thigh but no numbness and tingling into the lower extremities on most days. She does have occasional numbness and tingling in L4-5 distribution as well as some numbness and tingling into the feet in an L5-S1 distribution. Currently she rates her pain as a 5-8 out of 10 depending on her activities. Daniel Lucia [address], [place], [address], [facility], [facility] 04/06/2024 22:50:04 OBGyn Episode No OBEpisode recorded.
--- OUTSIDE RECORDS SUMMARY | 2024-08-21 07:41 | XMS_ITS ---
Author Organization [facility] Address [address] [facility] [address] [place] [address] Care Team Providers Care Gang Mower Operator Name Role Phone Blu Colby Primary Care Provider Unavailab Bridger Bhardwaj Unavailable [phone] Cameron Lord Unavailable Unavailable REASON FOR VISIT Lumbar Encounters Encounter Location Date Provider Diagnosis [facility] [address] [facility] [address] [place] [address] 11/14/2023 Bridger Linder PLAN OF TREATMENT No Information
--- OUTSIDE RECORDS SUMMARY | 2024-08-21 07:41 | XMS_ITS | Continuity of Care Document ---
Author Organization [facility] Address [address] [place] [address] Phone Care Team Providers Care Black Studies Professor Name Role Phone Mk Brown MD Unavailable Unavailable Procedures Procedure Date INJ SPINE LUM/SAC W/ IMAGING GUIDANCE Au SURGICAL TRAY LOW OSMOLAR CONTRAST (200 TO 299 MG IODI NE) Injection, Triamcinolone Acetonide, 10mg LUMBAR SPINE CT W/O CONTRAST Advance Directives Directive Yes / No Effective Date File Name No Information Encounters Encounter Description Practice Location Reason(s) For Visit Diagnoses Date Provider Providers Copied on Encounter [facility], [address], [place], [place], [id number], [place] tel:[phone] [facility] No Information Kevin Terrazas. [address] [place], [place], [address], [place]. tel:[phone] Referring Provider: Bridger Linder DO, [address], [place], [address]. tel:[phone] Family History Family Member Type Diagnosis Age At Onset No Information Payers Payer name Insurance type Covered constitution party ID Authoriza tion(s) [facility] CI [id number] Social History Type Description Quantity Date Captured Comments Sex Female Smoking Status No Information Chief Complaint And Reason For Visit No Information Reason For Referral Reason For Referral No Information History Of Present Illness Encounter Date Complaint History Of Prese nt Illness No Information Functional Status Date Functional Assessmen t No Information Instructions Date Instruction Additional Infor mation No Information Assessments Type Assessment Date No Information Patient Care Teams Name Effective Dates (start - stop) Status Members No Information
== END 2024-08-21 07:37 | disposition home or self-care (01) ==
LOC: ANHIMG 07:39
PROVIDERS: PCP Internal Medicine; Visit Provider Nurse Practitioner
DX: Z12.31 Encounter for screening mammogram for malignant neoplasm of breast (principal)
CPT/HCPCS: 77063; 77067